=== PATIENT | male | born 1940 | race Caucasian/White ===

== ENCOUNTER → 2018-05-07 | Outpatient (REF) | payer MEDICARE, OTHER ==
[~2018-05-07] MED LIST: ASPI325T PO; CRES20TA PO; D 50CAP PO; FINA5TAB2 PO; LEVO88TA3 PO; MIRA3350 PO; NORC1TAB4 PO; NORCOTAB PO; OMEP40CA2 PO; RAMI1CAP26 PO; SENO8.6T5 PO; TERA5CAP3 PO
== END ==
LOC: M LAB REF 16:22
PROVIDERS: ATTEND Physician Assistant
DX: L03.012 Cellulitis of left finger (principal)

== ENCOUNTER 2019-05-03 08:53 | Emergency (ER) | payer MEDICARE, OTHER ==
[~2019-05-03] VITALS: Ht 162.6 cm; Wt 83.0 kg
[~2019-05-03 08:53] MED LIST changes: +ASPI-1 PO; -ASPI325T PO; -CRES20TA PO; +CRES20TA2 PO; +HYDR-3715 PO; -NORC1TAB4 PO; +NORC1TAB7 PO; -NORCOTAB PO; -OMEP40CA2 PO; +OMEP40CA97 PO
--- NOTE | 2019-05-03 09:52 | REP ---
CT BRAIN WITHOUT CONTRAST: HISTORY: Altered mental status. COMPARISON STUDY: November 17, 2014. 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 The bony calvarium is intact. There is moderate vascular calcification in the distal vertebral and distal carotid arteries. Visualized paranasal sinuses are clear. On soft tissue window settings, there are fairly extensive small vessel changes. There is minimal generalized volume loss. There is no evidence of intracranial hemorrhage. No acute cortical infarction is appreciated. No mass or midline shift is observed. IMPRESSION: Vascular calcification, small vessel changes and minimal atrophy. No acute intracranial abnormality seen. Electronically Signed by Alfonso Nathan MD 05/03/2019 03:49 P
[2019-05-03 09:59] LABS: HEMATOCRIT 39.2 % (42.0-52.0); HEMOGLOBIN 13.2 g/dl (13.5-17.5); MEAN CORPUSCULAR HEMOGLOBIN 30.7 pg (27.0-33.0); MEAN CORPUSCULAR HGB CONC 33.7 g/dl (32.0-36.5); MEAN CORPUSCULAR VOLUME 91.2 fl (80.0-96.0); PLATELET COUNT, AUTOMATED 187 10^3/uL (150-450); WHITE BLOOD COUNT 5.7 10^3/uL (4.0-10.0)
[2019-05-03 10:30] LABS: AMPHETAMINES LEVEL URINE NEGATIVE (NEGATIVE); BARBITURATES URINE NEGATIVE (NEGATIVE); BENZODIAZEPINES URINE NEGATIVE (NEGATIVE); CANNABINOIDS URINE NEGATIVE (NEGATIVE); COCAINE METABOLITE URINE NEGATIVE (NEGATIVE); METHADONE URINE NEGATIVE (NEGATIVE); OPIATES URINE NEGATIVE (NEGATIVE); PHENCYCLIDINE URINE NEGATIVE (NEGATIVE)
[2019-05-03 10:32] LABS: ALT/SGPT 24 U/L (12-78); BLOOD UREA NITROGEN 8 MG/DL (7-18); CARBON DIOXIDE LEVEL 28 MEQ/L (21-32); CHLORIDE LEVEL 100 MEQ/L (98-107); GLOMERULAR FILTRATION RATE > 60.0 (>42); GLUCOSE, FASTING 115 MG/DL (70-100); POTASSIUM SERUM 4.5 MEQ/L (3.5-5.1); SODIUM LEVEL 133 MEQ/L (136-145)
[2019-05-03 10:33] LABS: ACETAMINOPHEN LEVEL < 2.0 UG/ML (10.0-30.0); BILIRUBIN,DIRECT 0.2 MG/DL (0.0-0.2); BILIRUBIN,TOTAL 0.5 MG/DL (0.2-1.0); ETHYL ALCOHOL (ETHANOL) < 0.003 % (0.000-0.010); SALICYLATE LEVEL < 1.7 MG/DL (5.0-30.0); TOTAL PROTEIN 7.1 GM/DL (6.4-8.2)
[2019-05-03 13:21] VITALS: BP 153/66
== END 2019-05-03 13:25 | disposition home or self-care (01) ==
LOC: M ED 08:53
DX: F43.0 Acute stress reaction (principal); I10 Essential (primary) hypertension; Z95.1 Presence of aortocoronary bypass graft; Z79.899 Other long term (current) drug therapy; Z79.82 Long term (current) use of aspirin; Z90.49 Acquired absence of other specified parts of digestive tract
CPT/HCPCS: 36415; 70450; 80048; 80076; 80307; 84443; 85027; 99284; G0480

== ENCOUNTER 2019-06-19 13:17 | Emergency (ER) | payer MEDICARE, OTHER ==
[~2019-06-19] VITALS: Ht 165.1 cm; Wt 78.2 kg
[2019-06-19] MEDS ORDERED: METF10004 PO (13:42)
[2019-06-19] MEDS ORDERED: LISI-1046 PO (13:42)
[2019-06-19] MEDS ORDERED: NS 500 ML IV ONE (14:00)
[2019-06-19] MEDS ORDERED: ACETAMINOPHEN 325 MG TAB PO ONE (14:00)
[2019-06-19 14:03] LABS: BASO % 0.4 % (0.0-1.0); EOS # 0.2 10^3/uL (0.0-0.5); EOS % 1.9 % (0.0-3.0); HEMATOCRIT 38.6 % (42.0-52.0); LYMPH # 1.1 10^3/uL (1.5-5.0); LYMPH % 11.2 % (24.0-44.0); MEAN CORPUSCULAR HEMOGLOBIN 30.4 pg (27.0-33.0); MEAN CORPUSCULAR HGB CONC 33.7 g/dl (32.0-36.5); MEAN CORPUSCULAR VOLUME 90.4 fl (80.0-96.0); MONO # 0.4 10^3/uL (0.0-0.8); MONO % 4.3 % (0.0-5.0); NEUTROPHILS # 8.4 10^3/uL (1.5-8.5); NEUTROPHILS % 81.8 % (36.0-66.0); PLATELET COUNT, AUTOMATED 187 10^3/uL (150-450); RED BLOOD COUNT 4.27 10^6/uL (4.30-6.10); WHITE BLOOD COUNT 10.2 10^3/uL (4.0-10.0)
[2019-06-19 14:16] LABS: INR 0.97; PROTHROMBIN TIME 12.6 SECONDS (11.8-14.0)
[2019-06-19 14:17] LABS: PARTIAL THROMBOPLASTIN TIME 28.2 SECONDS (25.0-38.4)
[2019-06-19 14:37] LABS: BLOOD UREA NITROGEN 11 MG/DL (7-18); CALCIUM LEVEL 9.2 MG/DL (8.8-10.2); CARBON DIOXIDE LEVEL 27 MEQ/L (21-32); CHLORIDE LEVEL 97 MEQ/L (98-107); CK-MB VALUE MASS 6.6 NG/ML (<3.6); CPK CREATINE PHOSPHOKINASE 247 U/L (39-308); CREATININE FOR GFR 0.96 MG/DL (0.70-1.30); FREE T4 1.05 NG/DL (0.76-1.46); GLOMERULAR FILTRATION RATE > 60.0 (>42); GLUCOSE, FASTING 107 MG/DL (70-100); MAGNESIUM LEVEL 1.3 MG/DL (1.8-2.4); MB/CK RELATIVE INDEX 2.67 (< OR =4); POTASSIUM SERUM 4.5 MEQ/L (3.5-5.1); SODIUM LEVEL 130 MEQ/L (136-145); TROPONIN I < 0.02 NG/ML (< 0.10)
--- NOTE | 2019-06-19 14:49 | REP ---
CHEST PORTABLE: REASON: Near syncopal episode. FINDINGS: The technique utilized in obtaining the radiograph has magnified the cardiac silhouette and accentuated the interstitial markings. The superior mediastinal structures are midline. The cardiac silhouette is unremarkable in size, shape, and position. The diaphragmatic surfaces of the lungs are regular, and the costophrenic angles are clear. The pulmonary menezes are clear. The imaged osseous structures are intact. IMPRESSION: There is no acute cardiopulmonary disease. There is evidence of previous median sternotomy. Electronically Signed by Markus Palumbo DO 06/19/2019 03:13 P
--- NOTE | 2019-06-19 14:59 | REP ---
REASON FOR EXAM: Syncopal episode. Comparison examination is 05/03/2019. There is no significant change from the prior exam. The ventricles and sulci are stable. The deep white matter is stable. Once again, patchy lucencies are seen throughout the deep cerebral white matter, status quo. There is no evidence of an acute intracranial hemorrhagic or nonhemorrhagic event. There is no shift in the midline structures. There are no extra-axial fluid collections. The posterior fossa is unchanged. Imaged paranasal sinuses and mastoid air cells are clear. There is no evidence of a skull fracture or significant change in the appearance of the skull. IMPRESSION: Stable chronic changes. Electronically Signed by Markus Palumbo DO 06/19/2019 03:14 P
--- NOTE | 2019-06-19 15:02 | REP ---
REASON FOR EXAM: Pain in the neck. No history of trauma. No priors. There is moderate disc space narrowing C2-3 through C4-5 with moderate to severe disc space narrowing at C5-6 and C6-7. There is heavy anterior and posterior osteophytic ridging seen at C5-6 and C6-7. The facet joints are well aligned bilaterally. Hypertrophic degenerative facet and uncovertebral joint changes are present at every level bilaterally. Vertebral body height and alignment is within normal limits. There is no evidence of an acute fracture. There is no evidence of abnormal paraspinal soft tissue swelling. IMPRESSION: Chronic changes, as described above. Electronically Signed by Markus Palumbo DO 06/19/2019 03:14 P
[2019-06-19 16:44] VITALS: BP 157/73
--- NOTE | 2019-06-19 19:29 | ECGEPIP ---
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
== END 2019-06-19 16:45 | disposition home or self-care (01) ==
LOC: M ED 13:17
DX: R51 Headache (principal); I95.1 Orthostatic hypotension; I11.9 Hypertensive heart disease without heart failure; I25.10 Atherosclerotic heart disease of native coronary artery without angina pectoris; E78.5 Hyperlipidemia, unspecified; K21.9 Gastro-esophageal reflux disease without esophagitis; I44.0 Atrioventricular block, first degree; Z90.49 Acquired absence of other specified parts of digestive tract; Z85.038 Personal history of other malignant neoplasm of large intestine; Z93.3 Colostomy status; Z95.1 Presence of aortocoronary bypass graft; Z79.899 Other long term (current) drug therapy; Z79.82 Long term (current) use of aspirin; Z79.84 Long term (current) use of oral hypoglycemic drugs

== ENCOUNTER 2020-09-14 11:35 | Emergency (ER) | payer MEDICARE ==
[~2020-09-14] VITALS: Ht 152.4 cm; Wt 74.0 kg
[~2020-09-14 11:35] MED LIST changes: +LISI2.5T2 PO; +METF10004 PO; +OMEP40CA4 PO; -OMEP40CA97 PO
[2020-09-14] MEDS ORDERED: LEVO100T5 (11:56)
--- NOTE | 2020-09-14 12:18 | REP ---
INDICATION: Altered Mental Status COMPARISON: 05/03/2019, 06/19/2019 TECHNIQUE: Axial noncontrast images from the skull base to the thoracic inlet with coronal reformations. This CT examination was performed using the following dose reduction techniques: Automated exposure control, adjustment of mA and/or kv according to the patient's size, and use of iterative reconstruction technique. FINDINGS: Atrophy with periventricular leukomalacia and microvascular ischemic changes are appreciated. The ventricles and sulci are symmetric. Quintero-white differentiation is maintained. There is no evidence for acute intracranial hemorrhage, mass/mass effect, pathology or infarction. No extra-axial fluid collection. Calvarium is intact. Paranasal sinuses and mastoid air cells are clear. IMPRESSION: Atrophy and microvascular ischemic changes. No acute intracranial hemorrhage, infarction, or mass/mass effect. <Electronically signed by Gonzalez Traylor > 09/14/20 [id number]
[2020-09-14 12:37] LABS: BASO % 0.4 % (0.0-1.0); EOS # 0.2 10^3/uL (0.0-0.5); EOS % 1.8 % (0.0-3.0); HEMATOCRIT 39.7 % (42.0-52.0); HEMOGLOBIN 13.3 g/dl (13.5-17.5); LYMPH # 1.2 10^3/uL (1.5-5.0); LYMPH % 12.5 % (24.0-44.0); MEAN CORPUSCULAR HEMOGLOBIN 30.6 pg (27.0-33.0); MEAN CORPUSCULAR HGB CONC 33.5 g/dl (32.0-36.5); MEAN CORPUSCULAR VOLUME 91.3 fl (80.0-96.0); MONO # 0.5 10^3/uL (0.0-0.8); MONO % 5.6 % (2.0-8.0); NEUTROPHILS # 7.5 10^3/uL (1.5-8.5); NEUTROPHILS % 79.4 % (36.0-66.0); PLATELET COUNT, AUTOMATED 193 10^3/uL (150-450); RED BLOOD COUNT 4.35 10^6/uL (4.30-6.10); WHITE BLOOD COUNT 9.5 10^3/uL (4.0-10.0)
[2020-09-14 12:38] VITALS: BP 119/61
--- NOTE | 2020-09-14 12:38 | REP ---
INDICATION: dizziness COMPARISON: 06/19/2019 TECHNIQUE: PA and lateral. FINDINGS: The mediastinum and cardiac silhouette are stable. No cardiomegaly. Lung menezes demonstrate chronic changes without acute consolidation, effusion, or pneumothorax. The skeletal structures are intact and normal. IMPRESSION: No acute cardiopulmonary process. <Electronically signed by Gonzalez Traylor > 09/14/20 [id number]
--- NOTE | 2020-09-14 12:54 | REP ---
INDICATION: trauma. COMPARISON: Comparison CT study of the cervical spine June 19, 2019.. TECHNIQUE: Helical scanning is acquired and overlapping 2 mm high resolution axial images were generated and reviewed at bone and soft tissue window settings. Coronal and sagittal multiplanar re-formations images are generated. FINDINGS: There is straightening of the normal cervical lordosis. Cervical vertebral body heights are preserved. Alignment is normal. No fracture or collapse is seen. There is advanced degenerative discogenic spurring with large spurs anteriorly at C4-5 C5-6 and C6-7 unchanged. Discogenic spurring is seen to a lesser degree at the other levels. There is osteoarthritis at the articulation between the dens and anterior arch of C1 and osteoarthritic facet hypertrophy is noted in the mid cervical spine bilaterally. There is no evidence of intraspinal or perispinal hematoma. There is uncovertebral spurring on the left at C 5 6 and C6-7 producing some neural foraminal narrowing. Right-sided uncovertebral spurring and neural foraminal narrowing is noted at C5-6. Vascular calcification is observed. Median sternotomy wires are noted.. IMPRESSION: Advanced degenerative spondylosis changes stable radiographically from the June 19, 2019 study. No traumatic abnormality noted.. <Electronically signed by Young Nathan > 09/14/20 [id number]
--- NOTE | 2020-09-14 12:57 | REP ---
INDICATION: trauma. COMPARISON: None. TECHNIQUE: Helical scanning is acquired and 4 mm axial images re-formatted. Coronal and sagittal MPR images are provided. 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 Lumbar vertebral body heights are preserved. Alignment is normal. There is no evidence of spondylolysis or spondylolisthesis. No fracture or collapse is seen. Vascular calcifications noted in a normal caliber aorta. There is osteoarthritic facet sclerosis and hypertrophy bilaterally at L5-S1, L4-5, and L3-4. There is mild to moderate central canal stenosis at the L3-4 level due to diffuse disc bulging, ligamentum flavum hypertrophy, and facet hypertrophy. There is a borderline canal size at L4-5 due to the same degenerative factors. No paraspinal hematoma or intraspinal hematoma is appreciated. IMPRESSION: Degenerative disc and osteoarthritic facet disease as noted above. No acute bony abnormality seen. No fracture or collapse seen. <Electronically signed by Young Nathan > 09/14/20 [id number]
--- NOTE | 2020-09-14 13:01 | REP ---
INDICATION: trauma. COMPARISON: None. TECHNIQUE: Helical scanning is acquired and 4 mm axial images re-formatted. Coronal and sagittal MPR images are generated. FINDINGS: Thoracic vertebral body heights are preserved. Alignment is normal. There is fairly advanced bridging osteophyte formation throughout the mid and lower thoracic spine and abutting osteophytes are seen it the thoracolumbar junction consistent with degenerative disc disease. No fracture or collapse is seen. No neural foraminal narrowing is seen. No intraspinal or perispinal hematoma or mass is observed. Vascular calcification is noted. Visualized lung menezes are clear. IMPRESSION: Advanced degenerative disc spurring with bridging osteophytes in the mid and lower thoracic levels. This produces rigid spine appearance in these levels. No fracture or collapse is seen however. <Electronically signed by Young Nathan > 09/14/20 [id number]
[2020-09-14 13:17] LABS: FREE T4 0.95 NG/DL (0.76-1.46); THYROID STIMULATING HORMONE 9.64 uIU/ML (0.358-3.740)
[2020-09-14 13:18] LABS: ALBUMIN 3.7 GM/DL (3.2-5.2); ALT/SGPT 26 U/L (12-78); BILIRUBIN,DIRECT 0.1 MG/DL (0.0-0.2); BILIRUBIN,TOTAL 0.4 MG/DL (0.2-1.0); BLOOD UREA NITROGEN 12 MG/DL (7-18); CALCIUM LEVEL 8.5 MG/DL (8.8-10.2); CARBON DIOXIDE LEVEL 27 MEQ/L (21-32); CHLORIDE LEVEL 101 MEQ/L (98-107); CK-MB VALUE MASS 9.1 NG/ML (<3.6); CPK CREATINE PHOSPHOKINASE 324 U/L (39-308); CREATININE FOR GFR 0.88 MG/DL (0.70-1.30); GLOMERULAR FILTRATION RATE > 60.0 (>35); GLUCOSE, FASTING 109 MG/DL (70-100); MB/CK RELATIVE INDEX 2.81 (< OR =4); POTASSIUM SERUM 4.3 MEQ/L (3.5-5.1); SODIUM LEVEL 133 MEQ/L (136-145); TOTAL PROTEIN 6.3 GM/DL (6.4-8.2); TROPONIN I < 0.02 NG/ML (< 0.10)
[2020-09-14 13:33] LABS: OSMOLALITY SERUM 276 MOSM/KG (280-301)
--- NOTE | 2020-09-15 08:03 | ED PDOC ---
Post-Departure Follow-Up radiology report faxed to Vivi Callaway MD Sep 15, 2020 08:03
--- NOTE | 2020-09-15 16:36 | ECGEPIP ---
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
== END 2020-09-14 15:34 | disposition home or self-care (01) ==
LOC: M ED 11:35
DX: R42 Dizziness and giddiness (principal); W19.XXXA Unspecified fall, initial encounter; M47.812 Spondylosis without myelopathy or radiculopathy, cervical region; M51.36 Other intervertebral disc degeneration, lumbar region; M25.70 Osteophyte, unspecified joint; I25.10 Atherosclerotic heart disease of native coronary artery without angina pectoris; E78.5 Hyperlipidemia, unspecified; I10 Essential (primary) hypertension; K21.9 Gastro-esophageal reflux disease without esophagitis; N40.0 Benign prostatic hyperplasia without lower urinary tract symptoms; Z79.82 Long term (current) use of aspirin; Z79.899 Other long term (current) drug therapy

== ENCOUNTER 2024-04-29 10:29 | Emergency (ER) | payer MEDICARE ==
[~2024-04-29 10:29] MED LIST changes: +LEVO100T5; -LISI2.5T2 PO; +LISI2.5T9 PO; +RAMI10CA64 PO; -RAMI1CAP26 PO
[2024-04-29 11:45] LABS: INR 0.91; PARTIAL THROMBOPLASTIN TIME 27.2 SECONDS (24.8-34.2); PROTHROMBIN TIME 12.6 SECONDS (12.5-14.5)
[2024-04-29 11:48] LABS: BASO % 0.5 % (0.0-1.0); EOS % 0.6 % (0.0-3.0); HEMATOCRIT 35.9 % (42.0-52.0); HEMOGLOBIN 12.3 g/dl (13.5-17.5); LYMPH # 0.9 10^3/uL (1.5-5.0); LYMPH % 12.8 % (24.0-44.0); MEAN CORPUSCULAR HEMOGLOBIN 32.1 pg (27.0-33.0); MEAN CORPUSCULAR HGB CONC 34.3 g/dl (32.0-36.5); MEAN CORPUSCULAR VOLUME 93.7 fl (80.0-96.0); MONO # 0.4 10^3/uL (0.0-0.8); NEUTROPHILS # 5.3 10^3/uL (1.5-8.5); NEUTROPHILS % 79.8 % (36.0-66.0); PLATELET COUNT, AUTOMATED 155 10^3/uL (150-450); RED BLOOD COUNT 3.83 10^6/uL (4.30-6.10); WHITE BLOOD COUNT 6.6 10^3/uL (4.0-10.0)
[2024-04-29 11:50] LABS: BLOOD UREA NITROGEN 20 MG/DL (9-23); CALCIUM LEVEL 8.9 MG/DL (8.3-10.6); CARBON DIOXIDE LEVEL 26 MMOL/L (20-31); CHLORIDE LEVEL 102 MMOL/L (98-107); GLOMERULAR FILTRATION RATE > 60.0 (>35); GLUCOSE, FASTING 96 MG/DL (74-106); POTASSIUM SERUM 5.2 MMOL/L (3.5-5.1); SODIUM LEVEL 134 MMOL/L (136-145)
[2024-04-29 12:13] LABS: MAGNESIUM LEVEL 1.5 MG/DL (1.8-2.4)
[2024-04-29 12:17] LABS: THYROID STIMULATING HORMONE 0.475 uIU/ML (0.55-4.78)
[2024-04-29] MEDS: MAG SULF 1GM/100ML (MAG RUN) 1 GM in IV 1 EA IV ONE ×2 (12:55→14:18)
[2024-04-29] MEDS ORDERED: HEPARIN SOD (PORCINE) 5000UNITS/ML 1ML VIAL/SYRINGE IV PRN (14:25)
[2024-04-29] MEDS: HEPARIN SOD (PORCINE) 5000UNITS/ML 1ML VIAL/SYRINGE IV ONE (14:25)
[2024-04-29] MEDS: ASPIRIN 81MG CHEW TABLET PO ONE (14:49)
[2024-04-29] MEDS: HEPARIN DRIP 25,000 UNITS in IV 1 EA IV SCH (14:52)
[2024-04-29 15:30] VITALS: BP 108/50; TEMP 97.6; O2SAT 100
== END 2024-04-29 15:41 | disposition short-term general hospital (02) ==
LOC: EDBD 10:29 → M ED 10:29
DX: I21.4 Non-ST elevation (NSTEMI) myocardial infarction (principal); I44.0 Atrioventricular block, first degree; E11.9 Type 2 diabetes mellitus without complications; K21.9 Gastro-esophageal reflux disease without esophagitis; I10 Essential (primary) hypertension; E78.5 Hyperlipidemia, unspecified; N40.0 Benign prostatic hyperplasia without lower urinary tract symptoms; Z79.1 Long term (current) use of non-steroidal anti-inflammatories (NSAID); Z79.84 Long term (current) use of oral hypoglycemic drugs; Z79.899 Other long term (current) drug therapy
CPT/HCPCS: 71045; 80047; 80048; 83735; 84443; 84484; 85025; 85610; 85730; 93005; 93041; 94760; 96374; 96375; 96376; 99285; J3475

== ENCOUNTER 2024-05-08 11:01 | Observation (INO) | payer MEDICARE ==
[~2024-05-08] VITALS: Ht 165.1 cm; Wt 71.0 kg
[~2024-05-08 11:01] MED LIST changes: -LEVO100T5; +LEVO100T5 PO
[2024-05-08] MEDS: NS 500 ML IV ONE ×2 (11:55→13:15)
[2024-05-08 11:56] LABS: BASO % 0.1 % (0.0-1.0); EOS % 0.3 % (0.0-3.0); HEMATOCRIT 41.2 % (42.0-52.0); HEMOGLOBIN 13.8 g/dl (13.5-17.5); LYMPH # 0.7 10^3/uL (1.5-5.0); LYMPH % 7.1 % (24.0-44.0); MEAN CORPUSCULAR HEMOGLOBIN 31.2 pg (27.0-33.0); MEAN CORPUSCULAR HGB CONC 33.5 g/dl (32.0-36.5); MONO # 0.5 10^3/uL (0.0-0.8); MONO % 4.7 % (2.0-8.0); NEUTROPHILS # 8.4 10^3/uL (1.5-8.5); NEUTROPHILS % 87.3 % (36.0-66.0); PLATELET COUNT, AUTOMATED 195 10^3/uL (150-450); RED BLOOD COUNT 4.43 10^6/uL (4.30-6.10); WHITE BLOOD COUNT 9.6 10^3/uL (4.0-10.0)
[2024-05-08] MEDS ORDERED: SERT25TA85 PO (13:22)
[2024-05-08] MEDS ORDERED: MOM 30ML SUSPENSION UDC PO PRN (15:20)
[2024-05-08] MEDS ORDERED: MAALOX 30 ML SUSP *UDC PO PRN (15:20)
[2024-05-08] MEDS ORDERED: ASPI81TA26 PO (16:47)
[2024-05-08] MEDS ORDERED: ROSU40TA81 PO (16:47)
[2024-05-08] MEDS ORDERED: LISI5TAB11 PO (16:47)
[2024-05-08] MEDS ORDERED: METF-838 PO (16:47)
[2024-05-08] MEDS ORDERED: D-50CAP PO (16:51)
[2024-05-08] MEDS ORDERED: PERI12LIQ SSP (16:51)
[2024-05-08] MEDS ORDERED: FERR324T2 PO (16:51)
[2024-05-08] MEDS ORDERED: B-122500 PO (16:51)
[2024-05-08] MEDS ORDERED: HOME MED LIST COMPLETE! XX SCH (16:55)
[2024-05-08 17:00] VITALS: BP_SYST 85; BP_SYST 93; BP_SYST 95; BP_DIAS 53; BP_DIAS 54; BP_DIAS 55; BP_DIAS 99; TEMP 97.3; O2SAT 99
[2024-05-08 17:31] LABS: ALBUMIN 3.2 G/DL (3.2-5.2); BILIRUBIN,TOTAL 0.5 MG/DL (0.3-1.2); CALCIUM LEVEL 8.7 MG/DL (8.3-10.6); CREATININE FOR GFR 1.25 MG/DL (0.70-1.30); GLOMERULAR FILTRATION RATE 58.6 (>35); POTASSIUM SERUM 4.6 MMOL/L (3.5-5.1); TOTAL PROTEIN 5.9 G/DL (5.7-8.2)
[2024-05-08 17:56] LABS: KETONE, URINE AUTO RFX NEGATIVE (NEGATIVE); LEUKOCYTE ESTERASE UR AUTO RFX 3+ (NEGATIVE); NITRITE, URINE AUTO RFX NEGATIVE (NEGATIVE); RBC, URINE AUTO RFX 7 /HPF (0-3); SQUAM EPITHELIAL CELL UR AURFX 0 /HPF (0-6); WBC, URINE AUTO RFX TNTC /HPF (0-3)
[2024-05-08 19:56] VITALS: BP 98/56; TEMP 97.3; O2SAT 98
[2024-05-08] MEDS: DOCUSATE SODIUM 100MG CAPSULE PO SCH (21:11)
[2024-05-08 23:35] VITALS: BP_SYST 116; BP_SYST 74; BP_SYST 92; BP_DIAS 51; BP_DIAS 56; TEMP 97.6; O2SAT 98
[2024-05-08 23:56] VITALS: BP 106/52
[2024-05-09] VITALS (8 sets, daily range): BP systolic 67–151; BP diastolic 35–81; TEMP 97.2–98.4; O2SAT 90–99
[2024-05-09] MEDS: ATROPINE SULF 0.4 MG/ML 1ML VIAL IV STA (04:39)
[2024-05-09] MEDS: NS 500 ML IV ONE (04:43)
[2024-05-09] MEDS: MIDODRINE 5 MG TAB PO ONE (04:59)
[2024-05-09] MEDS: ACETAMINOPHEN 325 MG TAB PO PRN (05:28)
[2024-05-09 07:16] LABS: HEMATOCRIT 33.5 % (42.0-52.0); HEMOGLOBIN 11.5 g/dl (13.5-17.5); MEAN CORPUSCULAR HEMOGLOBIN 31.9 pg (27.0-33.0); MEAN CORPUSCULAR HGB CONC 34.3 g/dl (32.0-36.5); MEAN CORPUSCULAR VOLUME 92.8 fl (80.0-96.0); PLATELET COUNT, AUTOMATED 165 10^3/uL (150-450); RED BLOOD COUNT 3.61 10^6/uL (4.30-6.10); WHITE BLOOD COUNT 6.7 10^3/uL (4.0-10.0)
[2024-05-09 07:37] LABS: ALBUMIN 2.9 G/DL (3.2-5.2); ALKALINE PHOSPHATASE 51 U/L (40-129); ALT/SGPT 15 U/L (7.0-40); AST/SGOT 21 U/L (<34); BILIRUBIN,TOTAL 0.5 MG/DL (0.3-1.2); BLOOD UREA NITROGEN 14 MG/DL (9-23); CALCIUM LEVEL 8.5 MG/DL (8.3-10.6); CARBON DIOXIDE LEVEL 23 MMOL/L (20-31); CHLORIDE LEVEL 106 MMOL/L (98-107); CREATININE FOR GFR 1.03 MG/DL (0.70-1.30); GLOMERULAR FILTRATION RATE > 60.0 (>35); GLUCOSE, FASTING 66 MG/DL (74-106); POTASSIUM SERUM 4.6 MMOL/L (3.5-5.1); SODIUM LEVEL 136 MMOL/L (136-145); TOTAL PROTEIN 5.3 G/DL (5.7-8.2)
[2024-05-09] MEDS: LEVOTHYROXINE 100MCG TABLET (0.1MG) PO SCH (12:43)
[2024-05-09] MEDS ORDERED: MIDODRINE 5 MG TAB PO PRN (12:55)
[2024-05-09] MEDS: OMEPRAZOLE 20MG CAP PO SCH (13:02)
[2024-05-09] MEDS: CYANOCOBALAMIN 500 MCG TAB PO SCH (13:02)
[2024-05-09] MEDS: ROSUVASTATIN 10 MG TAB (CRESTOR) PO SCH (13:03)
[2024-05-09] MEDS: ASPIRIN 81MG ENTERIC TABLET PO SCH (13:03)
[2024-05-09] MEDS: MIDODRINE 5 MG TAB PO SCH (14:52)
[2024-05-09] MEDS: SENNA 8.6 MG TAB (SENOKOT) PO ONE (14:52)
[2024-05-09] MEDS: MIRALAX *UNIT DOSE* 17GM PACKET PO ONE (14:52)
[2024-05-09] MEDS: LevoFLOXacin 500 MG TABLET PO ONE (14:52)
[2024-05-09] MEDS: MIRALAX *UNIT DOSE* 17GM PACKET PO SCH (20:59)
[2024-05-10 04:10] VITALS: BP 113/58; TEMP 97.5; O2SAT 99
[2024-05-10] MEDS: LevoFLOXacin 250 MG TABLET PO SCH (05:41)
[2024-05-10 06:25] LABS: HEMATOCRIT 35.7 % (42.0-52.0); MEAN CORPUSCULAR HEMOGLOBIN 31.3 pg (27.0-33.0); MEAN CORPUSCULAR HGB CONC 33.6 g/dl (32.0-36.5); PLATELET COUNT, AUTOMATED 186 10^3/uL (150-450); RED BLOOD COUNT 3.84 10^6/uL (4.30-6.10); WHITE BLOOD COUNT 8.3 10^3/uL (4.0-10.0)
[2024-05-10 07:07] LABS: BLOOD UREA NITROGEN 17 MG/DL (9-23); CALCIUM LEVEL 8.4 MG/DL (8.3-10.6); CARBON DIOXIDE LEVEL 26 MMOL/L (20-31); CHLORIDE LEVEL 103 MMOL/L (98-107); CREATININE FOR GFR 1.03 MG/DL (0.70-1.30); GLOMERULAR FILTRATION RATE > 60.0 (>35); GLUCOSE, FASTING 70 MG/DL (74-106); POTASSIUM SERUM 4.7 MMOL/L (3.5-5.1); SODIUM LEVEL 135 MMOL/L (136-145)
[2024-05-10 08:17] VITALS: BP 153/66; TEMP 98.2; O2SAT 98
[2024-05-10] MEDS: SENNA 8.6 MG TAB (SENOKOT) PO SCH (09:22)
[2024-05-10 11:45] VITALS: BP 98/53; TEMP 97; O2SAT 100
[2024-05-10] MEDS: MIDODRINE 5 MG TAB PO ONE (12:42)
[2024-05-10 16:00] VITALS: BP 155/70; TEMP 97.3; O2SAT 97
[2024-05-10] MEDS: MIDODRINE 5 MG TAB PO SCH (16:39)
[2024-05-10 20:35] VITALS: BP 162/54; TEMP 98; O2SAT 99
[2024-05-10 23:12] VITALS: BP 165/74; TEMP 98; O2SAT 96
[2024-05-11] VITALS (7 sets, daily range): BP systolic 100–156; BP diastolic 52–72; TEMP 97–97.9; O2SAT 98–100
[2024-05-11 06:22] LABS: HEMATOCRIT 35.8 % (42.0-52.0); HEMOGLOBIN 12.1 g/dl (13.5-17.5); MEAN CORPUSCULAR HEMOGLOBIN 30.9 pg (27.0-33.0); MEAN CORPUSCULAR HGB CONC 33.8 g/dl (32.0-36.5); MEAN CORPUSCULAR VOLUME 91.3 fl (80.0-96.0); PLATELET COUNT, AUTOMATED 180 10^3/uL (150-450); RED BLOOD COUNT 3.92 10^6/uL (4.30-6.10); WHITE BLOOD COUNT 6.8 10^3/uL (4.0-10.0)
[2024-05-11 06:40] LABS: BLOOD UREA NITROGEN 15 MG/DL (9-23); CALCIUM LEVEL 8.6 MG/DL (8.3-10.6); CARBON DIOXIDE LEVEL 26 MMOL/L (20-31); CHLORIDE LEVEL 103 MMOL/L (98-107); CREATININE FOR GFR 0.98 MG/DL (0.70-1.30); GLOMERULAR FILTRATION RATE > 60.0 (>35); GLUCOSE, FASTING 73 MG/DL (74-106); POTASSIUM SERUM 4.6 MMOL/L (3.5-5.1); SODIUM LEVEL 137 MMOL/L (136-145)
[2024-05-11] MEDS: MIDODRINE 2.5 MG TAB PO SCH (08:38)
[2024-05-11] MEDS: BALMEX CREAM 60GM EXT SCH (11:07)
[2024-05-12 04:58] VITALS: BP 142/65; TEMP 97.1; O2SAT 90
[2024-05-12 06:30] LABS: HEMATOCRIT 36.3 % (42.0-52.0); HEMOGLOBIN 12.4 g/dl (13.5-17.5); MEAN CORPUSCULAR HEMOGLOBIN 31.4 pg (27.0-33.0); MEAN CORPUSCULAR HGB CONC 34.2 g/dl (32.0-36.5); MEAN CORPUSCULAR VOLUME 91.9 fl (80.0-96.0); PLATELET COUNT, AUTOMATED 183 10^3/uL (150-450); RED BLOOD COUNT 3.95 10^6/uL (4.30-6.10); WHITE BLOOD COUNT 6.7 10^3/uL (4.0-10.0)
[2024-05-12 06:52] LABS: BLOOD UREA NITROGEN 18 MG/DL (9-23); CALCIUM LEVEL 8.8 MG/DL (8.3-10.6); CARBON DIOXIDE LEVEL 27 MMOL/L (20-31); CHLORIDE LEVEL 102 MMOL/L (98-107); CREATININE FOR GFR 1.09 MG/DL (0.70-1.30); GLOMERULAR FILTRATION RATE > 60.0 (>35); GLUCOSE, FASTING 81 MG/DL (74-106); POTASSIUM SERUM 4.8 MMOL/L (3.5-5.1); SODIUM LEVEL 136 MMOL/L (136-145)
[2024-05-12 07:35] VITALS: BP 140/64; TEMP 97.2; O2SAT 99
[2024-05-12 16:00] VITALS: BP 137/64; TEMP 97.1; O2SAT 100
[2024-05-12 18:50] VITALS: BP 123/91; TEMP 97; O2SAT 99
[2024-05-12 19:52] VITALS: BP 136/54; TEMP 97.2; O2SAT 98
[2024-05-13] VITALS (7 sets, daily range): BP systolic 135–152; BP diastolic 52–60; TEMP 97.3–97.7; O2SAT 95–100
[2024-05-13 06:18] LABS: HEMOGLOBIN 12.6 g/dl (13.5-17.5); MEAN CORPUSCULAR HGB CONC 34.1 g/dl (32.0-36.5); MEAN CORPUSCULAR VOLUME 91.1 fl (80.0-96.0); PLATELET COUNT, AUTOMATED 174 10^3/uL (150-450); RED BLOOD COUNT 4.06 10^6/uL (4.30-6.10); WHITE BLOOD COUNT 6.6 10^3/uL (4.0-10.0)
[2024-05-13 06:48] LABS: BLOOD UREA NITROGEN 16 MG/DL (9-23); CALCIUM LEVEL 8.7 MG/DL (8.3-10.6); CARBON DIOXIDE LEVEL 25 MMOL/L (20-31); CHLORIDE LEVEL 103 MMOL/L (98-107); CREATININE FOR GFR 0.91 MG/DL (0.70-1.30); GLOMERULAR FILTRATION RATE > 60.0 (>35); GLUCOSE, FASTING 81 MG/DL (74-106); POTASSIUM SERUM 4.4 MMOL/L (3.5-5.1); SODIUM LEVEL 136 MMOL/L (136-145)
[2024-05-14] VITALS: BP 148/64; TEMP 97.7; O2SAT 97
[2024-05-14 03:43] VITALS: BP 148/63; TEMP 97.3; O2SAT 97
[2024-05-14 05:48] LABS: HEMATOCRIT 37.9 % (42.0-52.0); HEMOGLOBIN 12.8 g/dl (13.5-17.5); MEAN CORPUSCULAR HEMOGLOBIN 31.2 pg (27.0-33.0); MEAN CORPUSCULAR HGB CONC 33.8 g/dl (32.0-36.5); MEAN CORPUSCULAR VOLUME 92.4 fl (80.0-96.0); PLATELET COUNT, AUTOMATED 191 10^3/uL (150-450); WHITE BLOOD COUNT 6.3 10^3/uL (4.0-10.0)
[2024-05-14 06:00] LABS: BLOOD UREA NITROGEN 16 MG/DL (9-23); CALCIUM LEVEL 8.6 MG/DL (8.3-10.6); CARBON DIOXIDE LEVEL 25 MMOL/L (20-31); CHLORIDE LEVEL 102 MMOL/L (98-107); CREATININE FOR GFR 0.87 MG/DL (0.70-1.30); GLOMERULAR FILTRATION RATE > 60.0 (>35); GLUCOSE, FASTING 85 MG/DL (74-106); POTASSIUM SERUM 4.5 MMOL/L (3.5-5.1); SODIUM LEVEL 136 MMOL/L (136-145)
[2024-05-14 08:00] VITALS: BP 145/64; TEMP 97.3; O2SAT 98
[2024-05-14 12:00] VITALS: BP 133/57; TEMP 97; O2SAT 98
[2024-05-15 03:10] VITALS: BP 135/60; TEMP 97.3; O2SAT 97
[2024-05-15 06:27] LABS: HEMATOCRIT 37.8 % (42.0-52.0); HEMOGLOBIN 12.9 g/dl (13.5-17.5); MEAN CORPUSCULAR HEMOGLOBIN 31.5 pg (27.0-33.0); MEAN CORPUSCULAR HGB CONC 34.1 g/dl (32.0-36.5); MEAN CORPUSCULAR VOLUME 92.2 fl (80.0-96.0); PLATELET COUNT, AUTOMATED 200 10^3/uL (150-450); WHITE BLOOD COUNT 6.6 10^3/uL (4.0-10.0)
[2024-05-15 06:59] LABS: BLOOD UREA NITROGEN 17 MG/DL (9-23); CALCIUM LEVEL 8.7 MG/DL (8.3-10.6); CARBON DIOXIDE LEVEL 27 MMOL/L (20-31); CHLORIDE LEVEL 102 MMOL/L (98-107); CREATININE FOR GFR 0.86 MG/DL (0.70-1.30); GLOMERULAR FILTRATION RATE > 60.0 (>35); GLUCOSE, FASTING 87 MG/DL (74-106); POTASSIUM SERUM 4.6 MMOL/L (3.5-5.1); SODIUM LEVEL 136 MMOL/L (136-145)
[2024-05-15 20:00] VITALS: BP 123/54; TEMP 97.3; O2SAT 98
[2024-05-16 00:34] VITALS: BP 123/54; TEMP 97.3; O2SAT 97
[2024-05-16 04:00] VITALS: BP 109/62; TEMP 97.3; O2SAT 95
[2024-05-16 06:14] LABS: HEMATOCRIT 39.4 % (42.0-52.0); HEMOGLOBIN 13.2 g/dl (13.5-17.5); MEAN CORPUSCULAR HEMOGLOBIN 30.8 pg (27.0-33.0); MEAN CORPUSCULAR HGB CONC 33.5 g/dl (32.0-36.5); MEAN CORPUSCULAR VOLUME 91.8 fl (80.0-96.0); PLATELET COUNT, AUTOMATED 219 10^3/uL (150-450); RED BLOOD COUNT 4.29 10^6/uL (4.30-6.10); WHITE BLOOD COUNT 7.7 10^3/uL (4.0-10.0)
[2024-05-16 07:06] LABS: BLOOD UREA NITROGEN 20 MG/DL (9-23); CALCIUM LEVEL 8.9 MG/DL (8.3-10.6); CARBON DIOXIDE LEVEL 29 MMOL/L (20-31); CHLORIDE LEVEL 102 MMOL/L (98-107); CREATININE FOR GFR 0.96 MG/DL (0.70-1.30); GLOMERULAR FILTRATION RATE > 60.0 (>35); GLUCOSE, FASTING 93 MG/DL (74-106); POTASSIUM SERUM 5.1 MMOL/L (3.5-5.1); SODIUM LEVEL 136 MMOL/L (136-145)
[2024-05-16 16:41] VITALS: BP 98/48
[2024-05-16 20:00] VITALS: BP 145/57; TEMP 97.2; O2SAT 98
[2024-05-17 06:14] VITALS: BP 137/56; TEMP 97.2; O2SAT 95
[2024-05-17 15:38] VITALS: BP 135/50
[2024-05-17 20:17] VITALS: BP 118/54; TEMP 97.5; O2SAT 94
[2024-05-17] MEDS: CHLORHEXIDINE GLUCONATE 0.12 % 15ML UDC (PERIDEX ORAL RINSE) SSP PRN (21:16)
[2024-05-17] MEDS: RAMELTEON 8 MG TAB (ROZEREM) PO ONE (23:14)
[2024-05-18 06:37] VITALS: BP 141/65; TEMP 97; O2SAT 97
[2024-05-18 07:49] VITALS: BP 143/61
[2024-05-18 15:39] VITALS: BP 112/43
[2024-05-19 03:30] VITALS: BP 137/67; TEMP 97.3; O2SAT 97
[2024-05-19] MEDS: FINASTERIDE 5MG TAB PO SCH (09:04)
[2024-05-20 03:50] VITALS: BP 130/61; TEMP 97.2; O2SAT 99
[2024-05-21 05:47] VITALS: BP 127/54; TEMP 97.2; O2SAT 96
[2024-05-21] MEDS: TERAZOSIN 5MG CAPSULE PO SCH (11:25)
[2024-05-22 05:53] VITALS: BP 92/46; TEMP 97.3; O2SAT 95
[2024-05-22 09:38] VITALS: BP 101/45
[2024-05-22] MEDS: MIDODRINE 5 MG TAB PO ONE (10:48)
[2024-05-22] MEDS: MIDODRINE 5 MG TAB PO SCH (15:29)
[2024-05-23 06:21] VITALS: BP 100/53; TEMP 97.3; O2SAT 97
[2024-05-23] MEDS: TAMSULOSIN 0.4 MG CAP PO SCH (10:14)
[2024-05-24 05:08] VITALS: BP 124/50; TEMP 97.8; O2SAT 99
[2024-05-24 17:12] VITALS: BP 123/49
[2024-05-25 04:00] VITALS: BP 116/78; TEMP 97.3; O2SAT 95
[2024-05-25 05:21] LABS: BASO % 0.4 % (0.0-1.0); EOS # 0.3 10^3/uL (0.0-0.5); EOS % 4.8 % (0.0-3.0); HEMATOCRIT 34.7 % (42.0-52.0); HEMOGLOBIN 11.7 g/dl (13.5-17.5); LYMPH % 18.4 % (24.0-44.0); MEAN CORPUSCULAR HEMOGLOBIN 30.7 pg (27.0-33.0); MEAN CORPUSCULAR HGB CONC 33.7 g/dl (32.0-36.5); MEAN CORPUSCULAR VOLUME 91.1 fl (80.0-96.0); MONO # 0.4 10^3/uL (0.0-0.8); MONO % 8.3 % (2.0-8.0); NEUTROPHILS # 3.5 10^3/uL (1.5-8.5); NEUTROPHILS % 67.7 % (36.0-66.0); PLATELET COUNT, AUTOMATED 178 10^3/uL (150-450); RED BLOOD COUNT 3.81 10^6/uL (4.30-6.10); WHITE BLOOD COUNT 5.2 10^3/uL (4.0-10.0)
[2024-05-25 05:45] LABS: BLOOD UREA NITROGEN 21 MG/DL (9-23); CALCIUM LEVEL 8.7 MG/DL (8.3-10.6); CARBON DIOXIDE LEVEL 28 MMOL/L (20-31); CHLORIDE LEVEL 101 MMOL/L (98-107); CREATININE FOR GFR 0.99 MG/DL (0.70-1.30); GLOMERULAR FILTRATION RATE > 60.0 (>35); GLUCOSE, FASTING 75 MG/DL (74-106); POTASSIUM SERUM 5.3 MMOL/L (3.5-5.1); SODIUM LEVEL 135 MMOL/L (136-145)
[2024-05-25] MEDS: PATIROMER SORBITEX CALCIUM 8.4 GM POWDER PACKET (VELTASSA) PO ONE (12:56)
[2024-05-26 04:30] VITALS: BP 86/40; TEMP 96.8; O2SAT 98
[2024-05-26 05:00] VITALS: BP 86/40; TEMP 97.3; O2SAT 98
[2024-05-26 06:30] VITALS: BP 109/49
[2024-05-26 08:00] VITALS: BP 116/51; TEMP 97; O2SAT 97
[2024-05-27 06:06] VITALS: BP 131/61; TEMP 97.3; O2SAT 96
[2024-05-27] MEDS: ENOXAPARIN 40MG/0.4ML SYRINGE (J1650 PER 10MG) SC SCH (20:12)
[2024-05-28 03:56] VITALS: BP 131/65; TEMP 97.2; O2SAT 99
[2024-05-29 01:32] LABS: KETONE, URINE AUTO RFX NEGATIVE (NEGATIVE); LEUKOCYTE ESTERASE UR AUTO RFX NEGATIVE (NEGATIVE); NITRITE, URINE AUTO RFX NEGATIVE (NEGATIVE); RBC, URINE AUTO RFX 32 /HPF (0-3); SQUAM EPITHELIAL CELL UR AURFX 0 /HPF (0-6); WBC, URINE AUTO RFX 2 /HPF (0-3)
[2024-05-29 05:42] VITALS: BP 121/49; TEMP 97.3; O2SAT 98
[2024-05-29 08:15] VITALS: BP 119/79
[2024-05-29 16:07] VITALS: BP 105/55
[2024-05-30 05:44] VITALS: BP 122/46; TEMP 97.3; O2SAT 98
[2024-05-30 07:53] VITALS: BP 124/45
[2024-05-31 06:00] VITALS: BP 117/50; TEMP 97.3; O2SAT 97
[2024-05-31] MEDS: RAMELTEON 8 MG TAB (ROZEREM) PO PRN (21:47)
[2024-06-01 06:49] VITALS: BP 91/43; TEMP 97.2; O2SAT 94
[2024-06-02 04:00] VITALS: BP 110/53; TEMP 97.3; O2SAT 94
[2024-06-03 04:36] VITALS: BP 127/38; TEMP 97.5; O2SAT 97
[2024-06-03 16:07] VITALS: BP 111/47
[2024-06-04 06:37] VITALS: BP 119/54; TEMP 97.5; O2SAT 97
[2024-06-04] MEDS ORDERED: MIDO5TA PO (07:32)
[2024-06-04] MEDS ORDERED: MIRA33506 PO (07:32)
[2024-06-04] MEDS ORDERED: TAMS1CAP17 PO (07:32)
[2024-06-04 07:50] VITALS: BP 120/56
== END 2024-06-04 14:14 ==
LOC: M ED 11:01 → M ED INP 11:02 → M PCU 16:57 → M MSPAV 05-12 18:49
PROVIDERS: ADMIT Student in an Organized Health Care Education/Training Program; ATTEND Student in an Organized Health Care Education/Training Program
DX: I95.2 Hypotension due to drugs (principal); T46.4X5A Adverse effect of angiotensin-converting-enzyme inhibitors, initial encounter; N39.0 Urinary tract infection, site not specified; B95.7 Other staphylococcus as the cause of diseases classified elsewhere; R33.9 Retention of urine, unspecified; R00.1 Bradycardia, unspecified; I44.1 Atrioventricular block, second degree; I25.10 Atherosclerotic heart disease of native coronary artery without angina pectoris; I21.A1 Myocardial infarction type 2; R79.89 Other specified abnormal findings of blood chemistry; I35.0 Nonrheumatic aortic (valve) stenosis; Z96.0 Presence of urogenital implants; Z95.1 Presence of aortocoronary bypass graft; R41.81 Age-related cognitive decline; E11.9 Type 2 diabetes mellitus without complications; E78.5 Hyperlipidemia, unspecified; N40.0 Benign prostatic hyperplasia without lower urinary tract symptoms; E03.9 Hypothyroidism, unspecified; Z79.899 Other long term (current) drug therapy; Z79.82 Long term (current) use of aspirin; Z79.890 Hormone replacement therapy; Z79.84 Long term (current) use of oral hypoglycemic drugs
CPT/HCPCS: 36415; 51702; 70450; 80047; 80048; 80053; 81001; 83036; 84484; 85025; 85027; 87088; 87186; 93005; 93306; 96361; 96372; 96374; 97116; 97161; 97165; 97530; 97535; 99285; G0378; J0461; J1650

== ENCOUNTER → 2024-09-02 | Outpatient (REF) | payer MEDICARE ==
[~2024-09-02] MED LIST changes: +ASPI81TA26 PO; +B-122500 PO; +D-50CAP PO; +FERR324T2 PO; +LISI5TAB11 PO; +METF-838 PO; +MIDO5TA PO; +MIRA33506 PO; +PERI12LIQ SSP; +ROSU40TA81 PO; +SERT25TA85 PO; +TAMS1CAP17 PO
[2024-09-02 08:29] LABS: HEMOGLOBIN A1c 5.4 % (4.0-6.0)
== END ==
LOC: SKLAB4 07:00
PROVIDERS: ATTEND Internal Medicine
DX: E11.9 Type 2 diabetes mellitus without complications (principal)

== ENCOUNTER → 2024-10-29 | Outpatient (REF) | payer MEDICARE ==
[~2024-10-29] MED LIST changes: +SENN-225 PO; -SENO8.6T5 PO
[2024-10-29 10:42] LABS: CALCIUM LEVEL 9.3 MG/DL (8.3-10.6); CARBON DIOXIDE LEVEL 30.0 MMOL/L (20-31); CHLORIDE LEVEL 101.0 MMOL/L (98-107); CREATININE FOR GFR 1.16 MG/DL (0.70-1.30); GLOMERULAR FILTRATION RATE 62.1 (>35); POTASSIUM SERUM 5.0 MMOL/L (3.5-5.1); SODIUM LEVEL 138.0 MMOL/L (136-145)
== END ==
LOC: SKLAB4 07:00
PROVIDERS: ATTEND Internal Medicine
DX: N48.9 Disorder of penis, unspecified (principal)

== ENCOUNTER → 2024-11-01 | Outpatient (CLI) | payer MEDICARE ==
[~2024-11-01] MED LIST changes: +ISOVUE-300 61% 100 ML VIAL As Ordered ONE
== END ==
LOC: M RAD 09:07
PROVIDERS: ATTEND Urology
DX: N28.89 Other specified disorders of kidney and ureter (principal)
CPT/HCPCS: 74178; Q9967

== ENCOUNTER → 2024-11-30 | Outpatient (REF) | payer MEDICARE ==
[~2024-11-30] MED LIST changes: -ISOVUE-300 61% 100 ML VIAL As Ordered ONE
[2024-11-30 11:37] LABS: PLATELET COUNT, AUTOMATED 159 10^3/uL (150-450)
[2024-11-30 11:51] LABS: ESTIMATED AVERAGE GLUCOSE 128.0 MG/DL (60-110)
[2024-11-30 12:14] LABS: CALCIUM LEVEL 9.0 MG/DL (8.3-10.6); CARBON DIOXIDE LEVEL 28.0 MMOL/L (20-31); CHLORIDE LEVEL 101.0 MMOL/L (98-107); CREATININE FOR GFR 1.12 MG/DL (0.70-1.30); GLOMERULAR FILTRATION RATE 64.8 (>35); IRON (FE) 77.0 UG/DL (65-175); PERCENT SATURATION 29.5 % (19.7-50.0); POTASSIUM SERUM 4.2 MMOL/L (3.5-5.1); SODIUM LEVEL 137.0 MMOL/L (136-145)
[2024-11-30 12:16] LABS: TOTAL 25(OH) VITAMIN D 55.4 NG/ML (20.0-100.0)
== END ==
LOC: SKLAB4 11-25 07:00
PROVIDERS: ATTEND Nurse Practitioner Adult Health
DX: N18.9 Chronic kidney disease, unspecified (principal); D63.1 Anemia in chronic kidney disease; Z79.899 Other long term (current) drug therapy

== ENCOUNTER → 2024-12-02 | Outpatient (REF) | payer MEDICARE ==
[2024-12-02 12:53] LABS: ESTIMATED AVERAGE GLUCOSE 123.0 MG/DL (60-110)
== END ==
LOC: SKLAB4 07:00
PROVIDERS: ATTEND Internal Medicine
DX: E11.9 Type 2 diabetes mellitus without complications (principal)

== ENCOUNTER → 2025-01-06 | Outpatient (REF) | payer MEDICARE, MEDICAID ==
[2025-01-06 09:41] LABS: PLATELET COUNT, AUTOMATED 166 10^3/uL (150-450)
[2025-01-06 10:02] LABS: IRON (FE) 61.0 UG/DL (65-175)
[2025-01-06 10:03] LABS: ALT/SGPT 15.0 U/L (7.0-40); AST/SGOT 16.0 U/L (<34); CALCIUM LEVEL 9.1 MG/DL (8.3-10.6); CARBON DIOXIDE LEVEL 29.0 MMOL/L (20-31); CHLORIDE LEVEL 100.0 MMOL/L (98-107); CREATININE FOR GFR 1.14 MG/DL (0.70-1.30); GLOMERULAR FILTRATION RATE 63.4 (>35); MAGNESIUM LEVEL 1.4 MG/DL (1.8-2.4); POTASSIUM SERUM 4.6 MMOL/L (3.5-5.1); SODIUM LEVEL 137.0 MMOL/L (136-145)
== END ==
LOC: SKLAB4 07:00
PROVIDERS: ATTEND Family Medicine
DX: E03.9 Hypothyroidism, unspecified (principal); D50.9 Iron deficiency anemia, unspecified; E83.42 Hypomagnesemia

== ENCOUNTER → 2025-02-10 | Outpatient (REF) | payer MEDICARE, MEDICAID ==
[2025-02-10 10:42] LABS: CALCIUM LEVEL 8.6 MG/DL (8.3-10.6); CARBON DIOXIDE LEVEL 28.0 MMOL/L (20-31); CHLORIDE LEVEL 102.0 MMOL/L (98-107); CREATININE FOR GFR 1.16 MG/DL (0.70-1.30); GLOMERULAR FILTRATION RATE 62.1 (>35); MAGNESIUM LEVEL 1.8 MG/DL (1.8-2.4); POTASSIUM SERUM 4.5 MMOL/L (3.5-5.1); SODIUM LEVEL 140.0 MMOL/L (136-145)
== END ==
LOC: SKLAB4 07:00
PROVIDERS: ATTEND Family Medicine
DX: E83.42 Hypomagnesemia (principal)

== ENCOUNTER → 2025-03-04 | Outpatient (REF) | payer MEDICARE, MEDICAID ==
[2025-03-04 11:38] LABS: ESTIMATED AVERAGE GLUCOSE 114.0 MG/DL (60-110)
== END ==
LOC: SKLAB4 07:00
PROVIDERS: ATTEND Family Medicine
DX: E11.9 Type 2 diabetes mellitus without complications (principal)